=== PATIENT | male | born 1965 | race Caucasian/White ===

== ENCOUNTER 2021-01-20 08:04 | Outpatient (REF) | payer OTHER, SELFPAY | END 2021-01-20 08:05 | disposition home or self-care (01) | LOC: HO.LAB 08:04 | PROVIDERS: Visit Provider Internal Medicine | DX: Z20.822 Contact with and (suspected) exposure to COVID-19 (principal) | CPT/HCPCS: C9803; U0003; U0005 ==

== ENCOUNTER 2021-03-18 07:46 | Outpatient (REF) | payer OTHER, SELFPAY ==
[2021-03-18 08:35] LABS: COVID-19 Test Negative (Negative)
== END 2021-03-18 07:47 | disposition home or self-care (01) ==
LOC: HO.LAB 07:46
PROVIDERS: PCP Internal Medicine; Visit Provider Internal Medicine
DX: Z20.822 Contact with and (suspected) exposure to COVID-19 (principal)
CPT/HCPCS: 36415; 87635; C9803